=== PATIENT | male | born 1950 | race Two or more races ===

== ENCOUNTER 2020-06-26 07:03 | Inpatient (IN) | payer OTHER ==
[~2020-06-26] VITALS: Ht 121.9 cm; Wt 5.0 kg
[~2020-06-26 07:03] MED LIST: CARVEDILOL25 MG PO; LASIX20 MG PO; SIMVASTA PO; XARELTO20 M1 PO
[2020-06-26] MEDS ORDERED: LEVOTHYROXINE25 MCG (15:43)
[2020-06-27] MEDS ORDERED: CEFADROXIL500 MG PO (07:34)
[2020-06-27] MEDS ORDERED: PERCOCET 5-3251 EACH PO (07:34)
== END 2020-06-27 09:23 | disposition home or self-care (01) | DRG 483 ==
LOC: CIR.AMB 07:03 → O/R 11:15 → SURG 11:15
PROVIDERS: ADMIT Orthopaedic Surgery; ATTEND Orthopaedic Surgery
PROC: 0RRJ00Z Replacement of Right Shoulder Joint with Reverse Ball and Socket Synthetic Substitute, Open Approach (ICD-10-PCS; principal; 2020-06-26 07:00)
DX: M19.011 Primary osteoarthritis, right shoulder (principal)

== ENCOUNTER 2023-09-21 13:53 | Outpatient (CLI) | payer OTHER ==
[~2023-09-21 13:53] MED LIST changes: +CEFADROXIL500 MG PO; +LEVOTHYROXINE25 MCG; +PERCOCET 5-3251 EACH PO
== END 2023-09-21 14:00 | disposition home or self-care (01) ==
LOC: EKG 13:53
PROVIDERS: ATTEND Ophthalmology
DX: I10 Essential (primary) hypertension (principal)

== ENCOUNTER 2024-06-14 08:59 | Outpatient (CLI) | payer OTHER | END 2024-06-14 09:10 | disposition home or self-care (01) | LOC: MRI 08:59 | DX: M54.41 Lumbago with sciatica, right side (principal) | CPT/HCPCS: 72148 ==